=== PATIENT | female | born 2000 | race Caucasian/White ===

== ENCOUNTER 2019-09-15 16:13 | Emergency (ER) | payer OTHER, SELFPAY ==
[2019-09-15 16:19] VITALS: BP 108/63; PULSE 58; RESP 18; TEMP 37; O2SAT 100
--- NOTE | 2019-09-15 16:29 | ED.FEMALEGU ---
HPI - Female Genitourinary General Chief complaint: Urogenital-Female Stated complaint: painful urination/blood in urine Time Seen by Provider: 09/15/19 16:29 Source: patient and RN notes reviewed History of Present Illness HPI Narrative: Patient is a 19-year-old female that presents the urgent care with complaints of hematuria and dysuria. Patient states that started approximately 2 days ago and she is noticed a pink-tinged urine with some suprapubic discomfort with urination. Patient also reports of some right low back pain and increased frequency and urgency. Patient denies any fever, chills, nausea, vomiting, abdominal pain. Patient states that she has had a UTI within the last year but is unsure of when and what medication treatment she had. No other acute complaints. No acute distress noted. Patient read the plan of care. Related Data Home Medications Medication Instructions Recorded Confirmed buspirone 7.5 mg PO BID 05/22/19 09/15/19 paroxetine HCl 30 mg PO QAM 05/22/19 09/15/19 Allergies Allergy/AdvReac Type Severity Reaction Status Date / Time No Known Allergies Allergy Verified 09/15/19 16:27 Review of Systems Review of Systems: Narrative: CONSTITUTIONAL: Denies fever, chills, or sweats. EYES: Denies visual changes, redness, or discharge. ENT: Denies rhinorrhea, congestion, sore throat, or otalgia. CARDIOVASCULAR: Denies chest pain, palpitations, or edema. RESPIRATORY: Denies cough or dyspnea. GASTROINTESTINAL: Denies abdominal pain, nausea, vomiting, or diarrhea. GENITOURINARY: Reports of dysuria, frequency, urgency, suprapubic pressure and hematuria SKIN: Denies rash or itching. MUSCULOSKELETAL: Reports of mild right low back pain NEUROLOGIC: Denies headache, numbness, or weakness. All other systems reviewed are negative, except as documented in HPI. [facility] Family History Family History (Updated 03/28/16 @ 14:35 by DOCTOR UNKNOWN) Other Acute myocardial infarction Social History Social History Smoking status: Never smoker Alcohol intake: never Comments At the time of my signature, I reviewed and agree with the nursing past medical, surgical, social, and family history. There is no relevant family history pertinent to the patient complaint. Exam Narrative: Exam Narrative: GENERAL: This is a well-nourished, well-developed patient, in no apparent distress. HEAD: normocephalic, atraumatic. EYES: PERRL. Sclera clear/white. Vision is grossly intact. EARS: External ears normal NOSE: External nose normal with no obvious nasal discharge THROAT: Mucous membranes moist NECK: Neck supple GASTROINTESTINAL: Abdomen soft, non-tender, nondistended. SKIN: warm, intact with no suspicious lesions or rash, good texture and turgor. NEURO: awake, alert, and oriented to person, place and time. There were no obvious focal neurologic abnormalities. EXTREMITIES: No clubbing, cyanosis, or edema. BACK: Negative CVA tenderness Course Vital Signs Vital signs: Vital Signs Temperature 98.6 F 09/15/19 16:19 Pulse Rate 58 L 09/15/19 16:19 Respiratory Rate 18 09/15/19 16:19 Blood Pressure 108/63 09/15/19 16:19 Pulse Oximetry 100 09/15/19 16:19 Temperature 98.6 F 09/15/19 16:19 Pulse Rate 58 L 09/15/19 16:19 Respiratory Rate 18 09/15/19 16:19 Blood Pressure 108/63 09/15/19 16:19 Pulse Oximetry 100 09/15/19 16:19 Reviewed MDM - Female Genitourinary MDM Narrative Medical decision making narrative: Reviewed lab results with the patient. She is aware that it is indicative of a urinary tract infection. Advised the patient to complete oral antibiotic regimen as prescribed. Make sure to eat and drink with the medication. Increase water intake and avoid sugary and caffeinated drinks. We will culture the urine, and call if antibiotics need to be changed or stopped based on culture results. If you have any questions regarding the culture, wait at least 3 days to call the facil
== END 2019-09-15 16:45 | disposition home or self-care (01) ==
PROVIDERS: Emergency Provider Nurse Practitioner Family
DX: N39.0 Urinary tract infection, site not specified (principal); R31.9 Hematuria, unspecified
CPT/HCPCS: 81003; 87077; 87086; 87088; 87186; 99213; G0463

== ENCOUNTER 2020-11-03 12:47 | Emergency (ER) | payer OTHER, SELFPAY ==
[2020-11-03 12:58] VITALS: BP 131/78; PULSE 83; RESP 16; TEMP 37.5; O2SAT 100
--- NOTE | 2020-11-03 13:09 | PC.NURSE ---
11/03/20 AT 1300 CHAPINCITO SALEH [employer]PRENTICE SAW PT AND MOTHER IN ROOM 4. CHAPINCITO CAME OUT OF ROOM AND MOTHER AND PT CAME OUT OF ROOM AND MOTHER STATES I AM GOING TO LEAVE AND GO SOMEWHERE ELSE BECAUSE BY DAUGHTER NEEDS TREATMENT NOW. DURING INITIAL BRIEF TRIAGE OF PT IN VITAL SIGN ROOM PRIOR TO BRINGING TO ROOM 4. MOM STATED PT IS HAVING HEROINE WITHDRAWAL AND HER LAST USE WAS THIS MORNING. MOM REPORTS WE HAVE BEEN THROUGH THIS BEFORE AND USUALLY DR THOMAS SEES PT BUT DR THOMAS IS NOT IN TODAY. MOM REQUESTING 7 ATIVANS, A SPECIAL MEDICINE FOR WITHDRAWAL SYMPTOMS, NEED MEDICINE FOR SLEEPING AND NEED IMMEDIATE TREATMENT PT NOTED TO BE ALERT AND ORIENTED X 3, SKIN FLUSHED, PT IS TEARFUL AND VITAL SIGNS WITHIN NORMAL LIMITS. MOM REPORTS PT DOES NOT INJECT HEROINE SHE SNORTS IT.
--- NOTE | 2020-11-03 14:21 | ED.GENADULT ---
HPI - General Adult General Chief complaint: Unspecified Stated complaint: Possible Heroin withdrawls Time Seen by Provider: 11/03/20 13:05 Source: patient and family Mode of arrival: ambulatory History of Present Illness HPI narrative: Katelynn Drummond is here for 4 management of withdrawal from heroin-medication to help her with her withdrawal, there is adamant about what she needs Related Data Home Medications Medication Instructions Recorded Confirmed buspirone 7.5 mg PO BID 05/22/19 09/15/19 paroxetine HCl 30 mg PO QAM 05/22/19 09/15/19 Allergies Allergy/AdvReac Type Severity Reaction Status Date / Time No Known Allergies Allergy Verified 09/15/19 16:27 Review of Systems Review of Systems: Narrative: CONSTITUTIONAL: Denies fever, chills, sweats. EYES: Denies visual changes, redness, discharge. ENT: Denies rhinorrhea, congestion, sore throat, otalgia. CARDIOVASCULAR: Denies chest pain, palpitations, edema. RESPIRATORY: Denies dyspnea, wheezing, cough GASTROINTESTINAL: Denies abdominal pain, nausea, vomiting, diarrhea. GENITOURINARY: Denies dysuria, hematuria, abnormal discharge SKIN: Denies rash or itching. NEUROLOGIC: Denies numbness, or focal weakness. PSYCHIATRIC: Denies anxiety or depression. Patient is sitting in chair withdrawn and shaking mother is answering all the questions PMFSH Past Medical History Medical History Heroin abuse Family History Family History Other Acute myocardial infarction Social History Social History Smoking status: Never smoker Alcohol intake: never Substance use type: heroin Comments At time of signature, I agree with nursing past medical, surgical, social and family history. There is no relevant family history pertinent to the presenting complaint. Exam Narrative: Exam Narrative: Mother got angry and she and daughter left before completion of visit- GENERAL: This is a well-nourished, well-developed patient, in mild distress. HEAD: normocephalic, atraumatic. EYES: PERRL. Sclera clear/white. Vision is grossly intact. EARS: External ears normal, auditory canals clear and without drainage, TMs normal without perforation. Hearing grossly intact. NOSE: External nose normal without nasal discharge, nares without redness, no rhinorrhea. THROAT: Mucous membranes moist, posterior pharynx NECK: Neck supple, non-tender CARDIOVASCULAR: Regular rate and rhythm without murmurs, gallops, or rubs. RESPIRATORY: Clear to auscultation. Breath sounds equal bilaterally. No wheezes, rales, or rhonchi. GASTROINTESTINAL: Abdomen soft, non-tender, SKIN: warm, intact with no suspicious lesions or rash, good texture and turgor. NEURO: awake, alert, and oriented to person, place and time. There were no obvious focal neurologic abnormalities. Steady gait EXTREMITIES: Normal range of motion. BACK: Nontender without deformity Course Course Emergency Course: Patient came to [facility] in heroin withdrawal with mother who wanted us very specific medication to help daughter manage withdrawal. Explained mother that without blood work and a drug screen I could not prescribe medication she got very angry. Complete assessment not done as patient's mother was demanding specific drugs. she states the patient needs Ativan and other meds to help her comfortably withdraw and that no one wants to help her. I explained to mother and patient that blood work and confirmation of use is required before providers prescribe any type of medication. Patient and mother chose to leave Vital Signs Vital signs: Vital Signs Temperature 99.5 F 11/03/20 12:58 Pulse Rate 83 11/03/20 12:58 Respiratory Rate 16 11/03/20 12:58 Blood Pressure 131/78 11/03/20 12:58 Pulse Oximetry 100 11/03/20 12:58 Temperature 99.5 F 11/03/20
== END 2020-11-03 13:09 | disposition left against medical advice (07) ==
PROVIDERS: Emergency Provider Nurse Practitioner; PCP Hospitalist
DX: F11.23 Opioid dependence with withdrawal (principal)
CPT/HCPCS: 99211; G0463